=== PATIENT | male | born 1980 | race Caucasian/White ===

== ENCOUNTER 2018-12-18 18:34 | Emergency (ER) | payer OTHER ==
[2018-12-18 20:57] LABS: ABS Basophils 0 10^3/ul (0-0.2); ABS Eosinophils 0.4 10^3/ul (0-0.6); ABS Monocytes 0.5 10^3/ul (0-0.8); ABS Neutrophils 3.2 10^3/ul (1.5-7.7); ABS Nucleated RBC 0 10^3/ul; Eosinophil % 5.8 %; Hematocrit 33 % (36-46); Hemoglobin 11.1 g/dL (14.0-18.0); Mean Corpuscular HGB Conc 34 g/dL (31-36); Mean Corpuscular Hemoglobin 29 pg (27-31); Mean Corpuscular Volume 86 fL (80-94); Mean Platelet Volume 6.8 fL (7.4-10.4); Nucleated Red Blood Cells % 0.1; Platelet Count 236 10^3/uL (150-450); Red Blood Count 3.79 10^6 /uL (4.18-5.48); Red Cell Distribution Width 13 % (10.5-15); White Blood Count 6.1 10^3/uL (3.5-10.8)
[2018-12-18 21:13] LABS: C Reactive Protein 76.57 mg/L (<8.01)
[2018-12-18 21:47] LABS: Albumin 3.9 g/dL (3.2-5.2); Albumin/Globulin Ratio 1.5 (1-3); BUN/Creatinine Ratio 14.7 (8-20); EGFR African American 107.4 (>60); EGFR Non-African American 88.7 (>60); Globulin 2.6 g/dL (2-4); Potassium 4.4 mmol/L (3.5-5.0); Total Bilirubin 0.2 mg/dL (0.2-1.0); Total Protein 6.5 g/dL (6.4-8.9)
[2018-12-18] MEDS ORDERED: Ibuprofen TAB* 800 MG PO ONE (23:24)
--- NOTE | 2018-12-18 23:43 | ED ---
Lower Extremity - HPI Summary HPI Summary: 38 year old male presents with right leg swelling for the past days. He has a history of varicose vein surgery week ago. He states the area got infected and is currently on antibiotics. Area was draining pus but now is not. has increased swelling to both legs but is worse on the right. Denies any chest pain or shortness breath. Denies any family history of blood clots. No recent travel. No increase in weight. No difficulty sleeping lying flat. - History of Current Complaint Chief Complaint: EDExtremityLower Stated Complaint: RT LEG SWOLLEN PER PT Time Seen by Provider: 12/18/18 21:09 Pain Intensity: 7 - Allergies/Home Medications Allergies/Adverse Reactions: Allergies Allergy/AdvReac Type Severity Reaction Status Date / Time diphenhydramine Allergy Swelling Verified 12/18/18 18:43 [From Benadryl] Of Face,Lips,& Throat seafood Allergy Anaphylatic Uncoded 12/18/18 18:43 Shock Home Medications: Home Medications Acetaminophen TAB* [Tylenol TAB*] 650 mg PO Q6H PRN 12/18/18 [History Confirmed 12/18/18] Buprenorp/Nalox 8-2 MG SL TAB [Suboxone 8-2 mg SL TAB*] 1 tab.sl SL DAILY [History Confirmed 12/18/18] Docusate CAP* [Colace Cap*] 100 mg PO BID PRN 12/18/18 [History Confirmed ] Ibuprofen TAB* [Motrin TAB* 600 MG] 600 mg PO Q6H PRN 12/18/18 [History Confirmed 12/18/18] Magnesium Hydroxide LIQ* [Milk of Magnesia LIQ*] 30 ml PO BID PRN 12/18/18 [ History Confirmed 12/18/18] Melatonin 5 mg PO BEDTIME PRN 12/18/18 [History Confirmed 12/18/18] Multivitamin/Iron/Folic Acid [Daily Vitamin Formula+Ir] 1 tab PO DAILY 12/18/18 [History Confirmed 12/18/18] Polyethylene Glycol 3350* [Miralax*] 17 gm PO DAILY 12/18/18 [History Confirmed 12/18/18] Sulfamethox/Trimethoprim DS* [Bactrim DS 800/160 TAB*] 1 tab PO BID 12/18/18 [ History Confirmed 12/18/18] guaiFENesin [Mucinex] 600 mg PO Q12H PRN 12/18/18 [History Confirmed 12/18/18] PMH/Surg Hx/FS Hx/Imm Hx Endocrine/Hematology History: Denies: Hx Anticoagulant Therapy Cardiovascular History: Denies: Hx Myocardial Infarction Infectious Disease History: No Infectious Disease History: Denies: Traveled Outside the [place] in Last 30 Days - Family History Known Family History: Negative: Blood Disorder - Social History Alcohol Use: None Substance Use Type: Reports: None Substance Use Comment - Amount & Last Used: sobriety date 08/08/2018 Smoking Status (MU): Former Smoker Review of Systems Negative: Fever Negative: Chest Pain Negative: Shortness Of Breath Positive: Myalgia - right leg swelling and pain All Other Systems Reviewed And Are Negative: Yes Physical Exam Triage Information Reviewed: Yes Vital Signs On Initial Exam: Initial Vitals Temp Pulse Resp BP Pulse Ox 97.2 F 67 12 122/71 96 12/18/18 18:41 12/18/18 18:41 12/18/18 18:41 12/18/18 18:41 12/18/18 18:41 Vital Signs Reviewed: Yes Appearance: Positive: Well-Appearing Skin: Positive: Other - erythema to right kumar with no warmth Head/Face: Positive: Normal Head/Face Inspection Eyes: Positive: Normal, Conjunctiva Clear ENT: Positive: Pharynx normal Respiratory/Lung Sounds: Positive: Clear to Auscultation, Breath Sounds Present Cardiovascular: Positive: Normal, RRR Musculoskeletal: Positive: Strength/ROM Intact - legs, Edema Left, Edema Right, Other - right>left edema, good pulses, compartments soft, sensation grossly intact Neurological: Positive: Normal Psychiatric: Positive: Normal Diagnostics - Vital Signs Vital Signs Temp Pulse Resp BP Pulse Ox 12/18/18 23:00 66 95 12/18/18 22:34 64 93 12/18/18 19:55 98.3 F 64 16 117/68 97 12/18/18 18:41 97.2 F 67 12 122/71 96 - Laboratory Lab Results: Lab Results 12/18/18 12/18/18 12/18/18 Range/Units 20:42 20:42 20:42 WBC 6.1 (3.5-10.8) 10^3/uL RBC 3.79 L (4.18-5.48) 10^6 /uL Hgb 11.1 L (14.0-18.0) g/dL Hct 33 L (36-46) % MCV 86 (80-94) fL MCH 29 (27-31) pg MCHC 34 (31-36) g/dL RDW 13 (10.5-15) % Plt Count 236 (150-450) 10^3/uL MPV 6.8 L (7.4-10.4) fL Neut % (Auto) 52.8 % Lymph % (Auto) 33.0 % [place] % (Auto) 7.9 % Eos % (Auto) 5.8 % Baso % (Auto) 0.5 % Absolute Neuts (auto) 3.2 (1.5-7.7) 10^3/ul Absolute Lymphs (auto) 2.0 (1.0-4.8) 10^3/ul Absolute Monos (auto) 0.5 (0-0.8) 10^3/ul Absolute Eos (auto) 0.4 (0-0.6) 10^3/ul Absolute Basos (auto) 0 (0-0.2) 10^3/ul Absolute Nucleated RBC 0 10^3/ul Nucleated RBC % 0.1 Sodium 138 (135-145) mmol/L Potassium 4.4 (3.5-5.0) mmol/L Chloride 104 (101-111) mmol/L Carbon Dioxide 29 (22-32) mmol/L Anion Gap 5 (2-11) mmol/L BUN 14 (6-24) mg/dL Creatinine 0.95 (0.67-1.17) mg/dL Est GFR ( Amer) 107.4 (>60) Est GFR (Non-Af Amer) 88.7 (>60) BUN/Creatinine Ratio 14.7 (8-20) Glucose 108 H (70-100) mg/dL Lactic Acid 0.6 (0.5-2.0) mmol/L Calcium 9.0 (8.6-10.3) mg/dL Total Bilirubin 0.20 (0.2-1.0) mg/dL AST 23 (13-39) U/L ALT 15 (7-52) U/L Alkaline Phosphatase 93 (34-104) U/L C-Reactive Protein 76.57 H (<8.01) mg/L B-Natriuretic Peptide (<=100) pg/mL Total Protein 6.5 (6.4-8.9) g/dL Albumin 3.9 (3.2-5.2) g/dL Globulin 2.6 (2-4) g/dL Albumin/Globulin Ratio 1.5 (1-3) 12/18/18 Range/Units 20:42 WBC (3.5-10.8) 10^3/uL RBC (4.18-5.48) 10^6 /uL Hgb (14.0-18.0) g/dL Hct (36-46) % MCV (80-94) fL MCH (27-31) pg MCHC (31-36) g/dL RDW (10.5-15) % Plt Count (150-450) 10^3/uL MPV (7.4-10.4) fL Neut % (Auto) % Lymph % (Auto) % [place] % (Auto) % Eos % (Auto) % Baso % (Auto) % Absolute Neuts (auto) (1.5-7.7) 10^3/ul Absolute Lymphs (auto) (1.0-4.8) 10^3/ul Absolute Monos (auto) (0-0.8) 10^3/ul Absolute Eos (auto) (0-0.6) 10^3/ul Absolute Basos (auto) (0-0.2) 10^3/ul Absolute Nucleated RBC 10^3/ul Nucleated RBC % Sodium (135-145) mmol/L Potassium (3.5-5.0) mmol/L Chloride (101-111) mmol/L Carbon Dioxide (22-32) mmol/L Anion Gap (2-11) mmol/L BUN (6-24) mg/dL Creatinine (0.67-1.17) mg/dL Est GFR ( Amer) (>60) Est GFR (Non-Af Amer) (>60) BUN/Creatinine Ratio (8-20) Glucose (70-100) mg/dL Lactic Acid (0.5-2.0) mmol/L Calcium (8.6-10.3) mg/dL Total Bilirubin (0.2-1.0) mg/dL AST (13-39) U/L ALT (7-52) U/L Alkaline Phosphatase (34-104) U/L C-Reactive Protein (<8.01) mg/L B-Natriuretic Peptide 49 (<=100) pg/mL Total Protein (6.4-8.9) g/dL Albumin (3.2-5.2) g/dL Globulin (2-4) g/dL Albumin/Globulin Ratio (1-3) Result Diagrams: 12/18/18 20:42 12/18/18 20:42 Lab Statement: Any lab studies that have been ordered have been reviewed, and results considered in the medical decision making process. - Ultrasound No standard instances Ultrasound Interpretation Completed By: Radiologist Summary of Ultrasound Findings: IMPRESSION: Superficial thrombophlebitis. Minimal nonspecific fluid collection just below. skin surface anterior to the kumar. Lower Extremity Course/Dx - Course Course Of Treatment: 38 year old male presents with right leg swelling for the past days. He has a history of varicose vein surgery week ago. He states the area got infected and is currently on antibiotics. Area was draining pus but now is not. has increased swelling to both legs but is worse on the right. Denies any chest pain or shortness breath. Denies any family history of blood clots. No recent travel. No increase in weight. No difficulty sleeping lying flat. On exam has edema noted to both legs greatest on the right. Neurovascularly intact. Has some erythema without warmth to right kumar. wbc normal. bnp normal. ultrasound no DVT but shows thromboplebitis. told to take ibuprofen, elevated, and use compression socks. told follow up with surgeon. patient understand and agrees with plan. - Diagnoses Differential Diagnosis/HQI/PQRI: Positive: Cellulitis, DVT, Phlebitis Provider Diagnoses: Phlebitis and thrombophlebitis of superficial vessels of right lower extremity Discharge - Sign-Out/Discharge Documenting (check all that apply): Patient Departure Patient Received Moderate/Deep Sedation with Procedure: No - Discharge Plan Condition: Good Disposition: HOME Patient Education Materials: Superficial Thrombophlebitis (ED) Referrals: No Primary Care Phys,NOPCP [Primary Care Provider] - Additional Instructions: elevate extremity apply heat Take ibuprofen every 6 hours You need to wear compression socks daily Follow up with surgeon Return to ED if develop any new or worsening symptoms - Billing Disposition and Condition Condition: GOOD Disposition: Home
[2018-12-18] MEDS ORDERED: Sulfamethox/Trimethoprim DS 800/160* TAB PO ONE (23:44)
[2018-12-18] MEDS ORDERED: Prazosin CAP* 1 MG PO ONE (23:44)
[2018-12-18] MEDS ORDERED: Gabapentin CAP(*) 400 MG PO ONE (23:44)
[2018-12-18] MEDS ORDERED: Melatonin (NF) ** ENTER STRENGTH IN LABEL DIRECTIONS PO ONE (23:45)
[2018-12-18] MEDS ORDERED: Melatonin 3 MG TAB PO ONE (23:45)
[2018-12-19 00:10] VITALS: BP 130/80
== END 2018-12-19 02:05 | disposition home or self-care (01) ==
LOC: ED 18:34
DX: I80.01 Phlebitis and thrombophlebitis of superficial vessels of right lower extremity (principal); Z88.8 Allergy status to other drugs, medicaments and biological substances; Z87.891 Personal history of nicotine dependence; Z98.890 Other specified postprocedural states
CPT/HCPCS: 36415; 80053; 83605; 83880; 85025; 86140; 99282; A9270-GY